=== PATIENT | male | born 1955 | race Caucasian/White ===

== ENCOUNTER 2019-07-14 10:15 | Emergency (ER) | payer BC, SELFPAY ==
[2019-07-14 10:23] VITALS: BP 135/88; PULSE 86; RESP 20; TEMP 37.3; O2SAT 98
--- NOTE | 2019-07-14 10:28 | ED.GENADULT ---
HPI - General Adult General Chief complaint: Upper Respiratory Infection Stated complaint: cough/fever Time Seen by Provider: 07/14/19 10:28 Source: patient Mode of arrival: ambulatory History of Present Illness HPI narrative: 63-year-old male patient presents the express care with complaints of cold symptoms that started 3 days ago. Patient states he has had body aches, fevers, just overall not feeling well. Patient states he had a little bit of stuffy nose and a slight cough. Patient states he has been taking aspirin for symptoms. Denies getting a flu shot this year. 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 Related Data Home Medications Medication Instructions Recorded Confirmed lisinopril 10 mg tablet 10 mg PO DAILY 07/06/19 07/14/19 aspirin [Adult Low Dose Aspirin] 81 mg PO DAILY 07/14/19 07/14/19 Allergies Allergy/AdvReac Type Severity Reaction Status Date / Time No Known Allergies Allergy Unknown Unverified 07/14/19 10:22 Review of Systems Review of Systems: Narrative: CONSTITUTIONAL: Positive fever, chills, body aches and sweats. EYES: Denies visual changes, redness, or discharge. ENT: Positive rhinorrhea, congestion, denies sore throat, or otalgia. CARDIOVASCULAR: Denies chest pain, palpitations, or edema. RESPIRATORY: Positive cough, denies dyspnea. GASTROINTESTINAL: Denies abdominal pain, nausea, vomiting, or diarrhea. GENITOURINARY: Denies dysuria or hematuria. SKIN: Denies rash or itching. MUSCULOSKELETAL: Denies back pain, joint pain, or myalgia. NEUROLOGIC: Denies headache, numbness, or weakness. PSYCHIATRIC: Denies anxiety or depression. [facility] Surgical History Surgical History (Updated 07/14/19 @ 10:29 by JOSE Rai) H/O inguinal hernia repair Family History Family History Mother Diabetes mellitus Family history of elevated blood lipids Family history of malignant neoplasm Sibling Family history of hypercholesterolemia Hypertension Father Hypertension Cerebrovascular accident Social History Social History Smoking status: Never smoker Alcohol intake: current Comments At the time of my signature I agree with nursing past medical history, surgical, social, and family history. There is no relevant family history pertinent to the presenting complaint. Exam Narrative: Exam Narrative: GENERAL: Well-appearing, well-nourished, and in no acute distress. HEAD: Normocephalic, atraumatic. No tenderness noted to frontal maxillary sinuses on palpation. EYES: PERRLA and EOMI. ENT: Nares with erythema and edema noted bilaterally, no rhinorrhea or epistaxis. Mucous membranes moist. Posterior pharynx with no erythema, tonsil enlargement, exudates or lesions present. Bilateral TMs are clear with no erythema or foreign bodies in the canal. NECK: Supple. No lymphadenopathy CHEST: Clear to auscultation. No respiratory distress. HEART: Regular rate and rhythm. No murmur heard. Normal peripheral pulses. ABDOMEN: Soft, nontender, nondistended, normal active bowel sounds. EXTREMITIES: Normal range of motion. No edema. SKIN: Warm, dry, no rash. NEURO: No focal deficits. Alert and oriented x3. Course Reevaluation(s) Reevaluation #1: Notify patient that his influenza test today was negative however given his symptoms and the sensitivity a test I am to go ahead and treat him as a flu today. Discussed with him that he still is outside of the window to receive antivirals I think he should continue taking his aspirin, Tylenol, ibuprofen to help with any aches pains and fevers. Discussed with him I will write him off for today and tomorrow since he is running a fever as long as he has been fever free for 24 hours he can go back to work next week. Discussed with patient he should get plenty of rest and increase his fluids and be sure to cover his cough. Patient verbalized understanding den
== END 2019-07-14 10:47 | disposition home or self-care (01) ==
PROVIDERS: Emergency Provider Nurse Practitioner Family
DX: J06.9 Acute upper respiratory infection, unspecified (principal); R50.9 Fever, unspecified; I10 Essential (primary) hypertension
CPT/HCPCS: 87804; 99212; G0463

== ENCOUNTER 2021-05-04 10:03 | Emergency (ER) | payer BC, SELFPAY ==
[2021-05-04 10:13] VITALS: BP 159/81; PULSE 69; RESP 16; TEMP 36.6; O2SAT 98
--- NOTE | 2021-05-04 10:51 | ED.URI ---
HPI - URI/Sore Throat General Chief Complaint: Upper Respiratory Infection Stated Complaint: sore throat Time Seen by Provider: 05/04/21 10:51 Source: patient Mode of arrival: ambulatory Limitations: no limitations History of Present Illness HPI Narrative: Wilbert Vann is a 65 yo male with a PMH of HTN, who presents with sore throat, started yesterday and states he feels like he has something stuck there. Has been taking [id number]-oke-[id number] pain medication drinking ice water. No fever no nausea vomiting diarrhea Related Data Home Medications Medication Instructions Recorded Confirmed aspirin [Adult Low Dose Aspirin] 81 mg PO DAILY 07/14/19 02/07/21 multivitamin,uz-[id number]-[id number] 1 tablet PO DAILY 02/03/20 02/07/21 Allergies Allergy/AdvReac Type Severity Reaction Status Date / Time No Known Allergies Allergy Unknown Verified 02/07/21 14:55 Review of Systems Review of Systems: CONSTITUTIONAL: Denies fever, chills, sweats. EYES: Denies visual changes, redness, discharge. ENT: Denies rhinorrhea, congestion, has sore throat, otalgia. Feels like something stuck in throat CARDIOVASCULAR: Denies chest pain, palpitations, edema. RESPIRATORY: Denies dyspnea, wheezing, cough GASTROINTESTINAL: Denies abdominal pain, nausea, vomiting, diarrhea. GENITOURINARY: Denies dysuria, hematuria, abnormal discharge SKIN: Denies rash or itching. NEUROLOGIC: Denies numbness, or focal weakness. PSYCHIATRIC: Denies anxiety or depression. [facility] Past Medical History Medical History Hepatitis C antibody test negative (07/28/17) Surgical History Surgical History H/O inguinal hernia repair S/P lumbar microdiscectomy (~2015) Family History Family History Mother Diabetes mellitus Family history of elevated blood lipids Family history of malignant neoplasm Sibling Family history of hypercholesterolemia Hypertension Father Hypertension Cerebrovascular accident Social History Social History Smoking end date: 11/29/84 Alcohol intake: current Comments At time of signature, I agree with nursing past medical, surgical, social and family history. There is no relevant family history pertinent to the presenting complaint. Exam Narrative: GENERAL: This is a well-nourished, well-developed patient, in mild distress. HEAD: normocephalic, atraumatic. EYES: . Sclera clear/white. Vision is grossly intact. EARS: E Hearing grossly intact. NOSE: External nose normal without nasal discharge, nares without redness, no rhinorrhea. THROAT: Mucous membranes moist, posterior pharynx erythema, has tonsils and sensation of something sticking when swallowing when patient points to area its the right upper third of esophagus NECK: Neck supple, non-tender CARDIOVASCULAR: Regular rate and rhythm without murmurs, gallops, or rubs. RESPIRATORY: Clear to auscultation. Breath sounds equal bilaterally. No wheezes, rales, or rhonchi. GASTROINTESTINAL: Abdomen soft, SKIN: warm, intact with no suspicious lesions or rash, good texture and turgor. NEURO: awake, alert, and oriented to person, place and time. There were no obvious focal neurologic abnormalities. Steady gait EXTREMITIES: Normal range of motion. BACK: Nontender without deformity Course Course Emergency Course: Patient comes with complaints of difficulty swallowing and feeling something sticking in his right tonsil Strep test is negative and on exam cannot visualize any lesion Start on amoxicillin and viscous lidocaine and refer to ENT Vital Signs Vital signs: Vital Signs Temperature 97.8 F 05/04/21 10:13 Pulse Rate 69 05/04/21 10:13 Respiratory Rate 16 05/04/21 10:13 Blood Pressure 159/81 H 05/04/21 10:13 Pulse Oximetry 98 05/04/21 10:13 Temperature
== END 2021-05-04 11:16 | disposition home or self-care (01) ==
PROVIDERS: Emergency Provider Nurse Practitioner; PCP Family Medicine
DX: R13.13 Dysphagia, pharyngeal phase (principal); I10 Essential (primary) hypertension
CPT/HCPCS: 87081; 87880; 99213; G0463

== ENCOUNTER → 2022-06-20 14:58 | Outpatient (CLI) | payer OTHER, SELFPAY ==
--- NOTE | ~2022-06-20 | XR_ITS ---
XR chest 2V DATE: 06/20/2022 15:07 INDICATION: Cough for one month TECHNIQUE: 2 views COMPARISON: None FINDINGS: There is bilateral hyperinflation. No pulmonary infiltrate or consolidation, pleural effusi on or pulmonary vascular congestion or pneumothorax is detected. Normal heart size. No hilar or mediastinal enlargement. Osteopenia. IMPRESSION: Bilateral hyperinflation. No active cardiopulmonary disease Reviewed, dictated and finalized at location B. [employer]
== END ==
PROVIDERS: PCP Family Medicine; Visit Provider Family Medicine
DX: R05.9 Cough, unspecified (principal); R91.8 Other nonspecific abnormal finding of lung field
CPT/HCPCS: 71046

== ENCOUNTER → 2022-09-22 12:12 | Outpatient (CLI) | payer OTHER, SELFPAY ==
--- NOTE | ~2022-09-22 | XR_ITS ---
EXAMINATION: XR lumbar spine min 4V DATE: 09/22/2022 12:28 INDICATION: Low back pain TECHNIQUE: Anteroposterior, lateral, and bilateral oblique views of the lumbar spine, and cone-down l ateral view of the lumbosacral junction were obtained. COMPARISON: MRI, 03/27/2016 FINDINGS: No fracture, dislocation, or subluxation. There is moderate loss of intervertebral disc spa ce height at L4-5 and mild loss of intervertebral disc space height at L5-S1. Small degenerative oste ophytes project from the anterior endplates of multiple vertebral bodies. There is mild to moderate f acet joint osteoarthritis. Changes of right inguinal hernia repair are noted. There is an indetermina te calcification of the right pelvis, possibly a bladder stone. IMPRESSION: 1. Moderate lumbar spondylosis without acute findings or significant interval change. 2. Indeterminate calcification of the right pelvis, possibly bladder stone. Reviewed, dictated and finalized at location B. IMPRESSION: 1. Moderate lumbar spondylosis without acute findings or significant interval c hange. 2. Indeterminate calcification of the right pelvis, possibly bladder stone.
== END ==
PROVIDERS: PCP Family Medicine; Visit Provider Family Medicine
DX: M54.9 Dorsalgia, unspecified (principal); M43.06 Spondylolysis, lumbar region
CPT/HCPCS: 72110

== ENCOUNTER → 2022-09-24 11:11 | Outpatient (CLI) | payer OTHER, SELFPAY ==
--- NOTE | ~2022-09-24 | MR_ITS ---
EXAMINATION: MR lumbar spine wo con DATE: 09/24/2022 12:05 INDICATION: Low back pain. TECHNIQUE: Magnetic resonance imaging (MRI) of the lumbar spine was performed without intravenous con trast. Sequences included sagittal T2-weighted FSE, sagittal T2-weighted FS FSE, sagittal T1-weighted FSE, and axial T2-weighted FSE. COMPARISON: Lumbar spine MRI 03/27/2016 FINDINGS: There is 10 degrees dextroscoliosis of lumbar spine. Vertebral body heights are normal. The re is mildly decreased disc height at L1-L2 and L2-L3, severely decreased disc height at L4-L5, and m ildly decreased disc height at L5-S1 with endplate remodeling. The distal spinal cord signal intensit y is normal. The conus medullaris is at T12-L1. The bladder is markedly distended. The following disc levels are specifically discussed: L1-L2: The disc is bulging and has an annular fissure. There is mild bilateral facet joint osteoarthr itis. There is mild bilateral neural foraminal stenosis. There is mild central canal stenosis. L2-L3: The disc is bulging. There is mild bilateral facet joint osteoarthritis. There is mild bilater al neural foraminal stenosis. There is mild central canal stenosis. There is severe stenosis of left lateral recess. L3-L4: The disc is bulging and has an annular fissure. There is moderate bilateral facet joint osteoa rthritis. There is moderate right and mild left neural foraminal stenosis. There is mild central daniel l stenosis. L4-L5: The disc is bulging and has an annular fissure. There is mild right and moderate left facet chapin int osteoarthritis. There is moderate bilateral neural foraminal stenosis. There is mild central daniel l stenosis. L5-S1: The disc is bulging with superimposed left subarticular zone extrusion with mass effect on lef t S1 nerve root in left lateral recess. There is severe right and moderate left facet joint osteoarth ritis. There is moderate bilateral neural foraminal stenosis. There is no central canal stenosis at t he midline. There is moderate stenosis of left lateral recess. IMPRESSION: 1. Severe lumbar spondylosis, worsened from 03/27/2016. 2. Lumbar dextroscoliosis. Reviewed, dictated and finalized at location A.
== END ==
PROVIDERS: PCP Family Medicine; Visit Provider Family Medicine
DX: M54.9 Dorsalgia, unspecified (principal); M47.816 Spondylosis without myelopathy or radiculopathy, lumbar region; M41.9 Scoliosis, unspecified
CPT/HCPCS: 72148

== ENCOUNTER 2022-09-27 11:01 | Emergency (ER) | payer OTHER, SELFPAY ==
--- NOTE | ~2022-09-27 | CT_ITS ---
EXAMINATION: CT abdomen pelvis wo con DATE: 09/27/2022 13:42 INDICATION: Hematuria TECHNIQUE: Computed tomography (CT) of the abdomen and pelvis was performed without intravenous contr ast. The dose-length product (DLP) was 423.61 mGy-cm. Automated exposure control and iterative recons truction technique were employed. COMPARISON: None FINDINGS: Minimal dependent atelectasis is present in the lung bases. The heart size is normal. The l iver, spleen, pancreas, gallbladder, and adrenal glands are normal. There is a 1.8 cm stone in the ur inary bladder. The bladder is decompressed by Alexander catheter. There is mild to moderate left hydroure teronephrosis and mild right hydronephrosis. No pathologically enlarged abdominal or pelvic lymph nod es are identified. No pathologically enlarged abdominal or pelvic lymph nodes are identified. No free intraperitoneal gas or evidence of bowel obstruction. The appendix is normal. There is a tiny umbili mukesh hernia containing fat. There is severe lumbar spondylosis IMPRESSION: 1. 1.8 cm stone in the urinary bladder with mild to moderate left hydronephrosis and mild right hydro nephrosis. Reviewed, dictated and finalized at location A. IMPRESSION: 1. 1.8 cm stone in the urinary bladder with mild to moderate left hydronephrosi s and mild right hydronephrosis.
[2022-09-27 11:04] VITALS: BP 180/114; PULSE 86; RESP 18; TEMP 36.4; O2SAT 94
[2022-09-27 11:45] LABS: Appearance Urine Cloudy (Clear); Bacteria Urine None Seen /hpf; Bilirubin Urine Negative (Negative); Blood Urine 3+ (Negative); Color Urine Dark Yellow (Yellow); Glucose Urine UA Negative (Negative); Ketones Urine 1+ mg/dL (Negative); Leukocyte Esterase Ur Trace LEU/UL (Negative); Nitrate Urine Negative (Negative); Non Pathogenic Casts 0-2; Protein Urine 2+ mg/dL (Negative); RBC Urine >100 /hpf (0-2); Specific Grav Ur 1.012 (1.001-1.035); Squamous Epithelial Cell Urine Occasional /hpf (Few); Urobilinogen Urine 0.2 mg/dL (<2.0); WBC Urine 0-5 /hpf; pH Urine 5.5 (5.0-9.0)
--- NOTE | 2022-09-27 11:45 | ED.GENADULT ---
HPI - General Adult General Chief complaint: Urogenital-Male Stated complaint: I can't pee Time Seen by Provider: 09/27/22 11:09 History of Present Illness HPI narrative: 66-year-old male presents emergency department for evaluation of increased urinary retention. Patient states that since this morning he has had increased difficulty urinating. Patient does have prior history of back surgery approximately 6 and half years ago. Patient reports over the last few weeks he was having increased left leg pain. Patient had follow-up with his chiropractor and was deferred to his primary care physician and his primary care physician ordered an outpatient MRI. Outpatient MRI showed that he did have degenerative changes but no neurologic issues were noted. Patient denies any prior issues with urinary retention. Patient currently denies any numbness weakness of his lower extremities. Patient denies any perineal numbness and denies any bowel incontinence. Patient states he has had some decreased caliber of his urinary stream and does have some increased hesitancy over the last few days. Related Data Home Medications Medication Instructions Recorded Confirmed aspirin 81 mg tablet,delayed 81 mg PO DAILY 07/14/19 09/22/22 release (Adult Low Dose Aspirin) multivitamin,[id number]-lyqs-[id number] 1 tablet PO DAILY 02/03/20 09/22/22 (Complete Multivitamin tablet) Allergies Allergy/AdvReac Type Severity Reaction Status Date / Time No Known Allergies Allergy Unknown Verified 09/27/22 11:35 Review of Systems Review of Systems: All systems reviewed & are unremarkable except as noted in HPI and below PMFSH Past Medical History Medical History Hepatitis C antibody test negative (07/28/17) Surgical History Surgical History H/O inguinal hernia repair S/P lumbar microdiscectomy (~2015) Family History Family History Mother Diabetes mellitus Family history of elevated blood lipids Family history of malignant neoplasm Sibling Family history of hypercholesterolemia Hypertension Father Hypertension Cerebrovascular accident Social History Social History Smoking status: Former smoker Smoking end date: 11/29/84 Alcohol intake: current Substance use: never Substance use type: does not use Lack of Transportation: No Lack of Food: Never True Current Housing: I Have Housing Concerned About Future Housing: No Difficulty Paying Gas/Electric Bills: No Difficulty Paying for Meds: No Currently Unemployed: No Education: High School Diploma/GED Difficulty w/ Childcare or Family Care: No Living arrangements: with family Additional living arrangements comments: Occupation/Education: occupation Gender identity (if verbalized by the patient): Male Sexual Orientation (if Verbalized by the Patient): Straight or Heterosexual Exam Narrative: APPEARANCE: Well appearing, no pain, no distress, well-nourished. HEAD: normocephalic, atraumatic. EYES: PERRLA/EOMI, conjunctivae clear. NOSE: Normal no drainage NECK: Supple. No adenopathy, no masses. RESPIRATORY: Airway patent, respirations nonlabored. Clear to auscultation bilaterally, no rales, rhonchi, wheezing. CARDIOVASCULAR: Regular rate and rhythm without murmurs rubs or gallops. ABDOMINAL: Soft, nontender, nondistended, normal bowel sounds MUSCULOSKELETAL: Moves all extremities. Strength/ROM intact, No edema, No calf tenderness. NEURO: Alert. Cranial nerves II through XII intact. Grossly intact. Normal strength reflexes and sensation in bilateral lower extremities SKIN: Warm, dry. Normal Color Course Course Emergency Course: 66-year-old male presented the ED for evaluation of urinary retention. Patient did have great
[2022-09-27 11:47] LABS: Add Urine Microscopic? YES
[2022-09-27 11:52] LABS: Basophils Percent Auto 0.4 % (0.2-1.2); Eosinophils Percent Auto 0.2 % (0-4.4); Hematocrit 43.5 % (42.0-52.0); Hemoglobin 15.4 g/dL (14.0-18.0); Immature Granulocyte Absolute 0.06 K/mm3 (0.00-0.031); Immature Granulocyte Percent A 0.5 % (0-0.5); Lymphocytes Absolute Auto 0.61 K/mm3 (0.9-3.2); Lymphocytes Percent Auto 5.4 % (18.3-44.2); Mean Corpuscular HGB Conc 35.4 g/dl (32-36); Mean Corpuscular Hemoglobin 31.1 pg (26-34); Mean Corpuscular Volume 87.9 fl (80-100); Monocytes Absolute Auto 0.7 K/mm3 (0.1-0.6); Monocytes Percent Auto 5.7 % (2.6-8.5); Neutrophils Absolute Auto 9.9 K/mm3 (1.3-6.7); Neutrophils Percent Auto 87.8 % (45.5-73.1); Platelet Count Result 223 k/mm3 (150-375); Red Blood Count 4.95 M/mm3 (4.6-6.20); Red Cell Distribution Width 11.8 % (11.5-14.5); White Blood Count 11.3 K/mm3 (4.5-10.0)
[2022-09-27 12:01] LABS: Alanine Aminotransferase 43 U/L (6-50); Albumin Level 4.8 g/dL (3.5-5.1); Alkaline Phosphatase 65 U/L (38-126); Anion Gap 10 mmol/L (8-16); Aspartate Amino Transferase 36 U/L (17-59); Bilirubin,Total 1.5 mg/dL (0.2-1.3); Blood Urea Nitrogen 17 mg/dL (9-20); Calcium 9.2 mg/dL (8.4-10.2); Carbon Dioxide 26 mmol/L (22-30); Chloride 96 mmol/L (98-107); Estimated CRCL calculation 72 ml/min; Estimated Glomerular Filt Rate > 60; Glucose 126 mg/dL (65-110); Potassium 4.7 mmol/L (3.4-5.0); Sodium 132 mmol/L (137-145)
[2022-09-27 12:31] VITALS: BP 132/82; PULSE 103; O2SAT 97
[2022-09-27] MEDS: TAMSULOSIN HCL 0.4 MG CAPSULE PO (14:54)
[2022-09-27 15:03] VITALS: BP 163/85; PULSE 100; RESP 18; O2SAT 99
--- NOTE | 2022-09-30 08:34 | PM.HPGS ---
History of Present Illness History of Present Illness Consent: Risks, benefits, and alternatives have been discussed and questions answered. Patient agrees to proceed with procedure. Chief complaint: I can't pee Narrative: Wilbert Vann is a 66 year old male, Until recently unknown to our practice, who presented to the ER over the weekend with increasing difficulty voiding and persistent low back pain. He has no known history of BPH or other urological issues. He does note, however, over the past several weeks a diminished stream. He denies a sense of incomplete emptying and has no history of known hematuria or urolithiasis. Imaging, however, demonstrated of bladder distension with a residual volume of approximately 1400 cc and a large bladder stone. After discussion of options he elected for placement of a catheter with outpatient plans for laser lithotripsy and extraction of a bladder stone. He was started on tamsulosin. He is aware the risk of this procedure including, but not limited to, persistent postoperative urinary retention requiring additional therapy, ongoing hematuria. Review of Systems Cardiovascular: Cardiovascular: Denies chest pain, Denies lightheadedness, Denies palpitations and Denies dyspnea Respiratory: Respiratory: Denies dyspnea Gastrointestinal: Gastrointestinal: Denies diarrhea, Denies nausea and Denies vomiting Genitourinary: Genitourinary: Denies hematuria and Denies dysuria Endocrine: Endocrine: Denies palpitations PMFSH Past Medical History Medical History (Updated 09/30/22 @ 08:36 by Kartik Kumar MD) Back Pain Chronic narcotic use Essential (primary) hypertension Hepatitis C antibody test negative (07/28/17) Prediabetes Pure hypercholesterolemia Surgical History Surgical History H/O inguinal hernia repair S/P lumbar microdiscectomy (~2015) Family History Family History Mother Diabetes mellitus Family history of elevated blood lipids Family history of malignant neoplasm Sibling Family history of hypercholesterolemia Hypertension Father Hypertension Cerebrovascular accident Social History Social History Smoking packs per day: 0.25 Smoking cigarettes per day: 5.0 Years smoked: 15 Smoking pack-years: 3.75 Smoking status: Former smoker Tobacco type: cigarettes Smoking end date: 11/29/84 Alcohol intake: current Drinks per week: 6 Substance use: never Substance use type: does not use Lack of Transportation: No Lack of Food: Never True Current Housing: I Have Housing Concerned About Future Housing: No Difficulty Paying Gas/Electric Bills: No Difficulty Paying for Meds: No Currently Unemployed: No Education: High School Diploma/GED Difficulty w/ Childcare or Family Care: No Living arrangements: with family Additional living arrangements comments: Occupation/Education: occupation Gender identity (if verbalized by the patient): Male Sexual Orientation (if Verbalized by the Patient): Straight or Heterosexual Spiritual care concerns: No Meds Home Medications and Allergies Home Medications Medication Instructions Recorded Confirmed Type aspirin 81 mg tablet,delayed 81 mg PO DAILY 07/14/19 09/29/22 History release (Adult Low Dose Aspirin) multivitamin,gu-[id number]-[id number] 1 tablet PO DAILY 02/03/20 09/29/22 History (Complete Multivitamin tablet) lisinopril 10 mg tablet 10 mg PO DAILY #90 tabs 02/13/22 09/29/22 Rx cyclobenzaprine 10 mg tablet 10 mg PO TID PRN muscle spasm #30 09/22/22 09/29/22 Rx tabs hydrocodone 7.5 mg-acetaminophen 1 tablet PO Q6H PRN pain #30 tabs 09/22/22 09/29/22 Rx 325 mg tablet tamsulosin 0.4 mg capsule (Flomax) 0.4 mg PO DAILY #20 caps 09/27/22 09/29/22 Rx Allergies Allergy/AdvReac Type Severit
--- NOTE | 2022-09-30 08:37 | WPDHPUPDATE1 ---
History and Physical Update Update Date/Time: 09/30/22 08:37 History and Physical has been reviewed, including an updated exam of the patient. There are NO changes in the patient's condition. Risks, benefits, and alternatives have been discussed and questions answered. Patient agrees to proceed with procedure.
== END 2022-09-27 15:05 | disposition home or self-care (01) ==
PROVIDERS: Emergency Provider Emergency Medicine; PCP Family Medicine
DX: N21.0 Calculus in bladder (principal); R33.9 Retention of urine, unspecified; Z79.82 Long term (current) use of aspirin; Z87.891 Personal history of nicotine dependence; N13.30 Unspecified hydronephrosis
CPT/HCPCS: 36415; 51702; 74176; 80053; 81001; 85025; 99284; A9270

== ENCOUNTER 2022-09-30 00:56 | Day surgery (SDC) | payer OTHER, SELFPAY ==
--- NOTE | 2022-09-29 11:19 | PC.NURSE ---
Report to the Outpatient Waiting Room, entrance under the green pavilion located off [facility], at time __1200 on date __09/30/22 . Planned Procedure Time: __1400 . Time changes happen often and if your time is changed the preop area will call you the afternoon before. - You and your visitor will be asked to self-screen and do not enter if you have any COVID symptoms. - A mask is optional within the hospital at this time. Patients may have clear liquids (water, carbonated beverages, clear teas, apple juice) until 3 hours prior to surgery with a maximum of 20 ounces. - No food from midnight until time of surgery - Infants may have breast milk until 4 hours before surgery, formula 6 hours prior to surgery. - Children will be allowed to drink immediately following surgery. If applicable, please bring a bottle or sippy cup to assist with drinking. Juice, water, soda, and popsicles are readily available. For infants on formula, please bring formula the day of surgery. Pacifiers are allowed. Take the following medications with a SIP of water the morning of surgery: __NONE DO NOT STOP ANY OF YOUR OTHER PRESCRIPTION MEDICATIONS PRIOR TO SURGERY ?EXCEPT THE FOLLOWING Medications to discontinue per physician ____ASPIRIN PER DR KIM Date to take last dose Please no make-up, nail croatian, hairspray, perfume, deodorant, or body powder the day of surgery. No jewelry (including any body piercings) or valuables the day of surgery, leave them at home. Please take a shower or bath the night before, or the morning of, surgery with an antibacterial soap. Wear comfortable, loose fitting clothing. Children are encouraged to wear pajamas. - Jewelry must be removed prior to entering the operating room. Rings and piercings that are not removed may be cut off. - The hospital will not accept responsibility for valuables. - Please leave all valuables, including medications, at home the day of surgery. If you are going home after surgery, a licensed driver's license examiner must drive you home. - NO public transportation without another adult if you receive anesthesia. - We recommend that an adult stay with you for 24 hours following discharge. - We also recommend that you do not drive, make important decision, drink alcoholic beverages, or take any drugs that were not prescribed by your health care provider for at least 24 hours after your discharge time. For Pediatric surgeries, we recommend two adults accompany the child home. Follow any additional instructions given to you from your surgeon. If you or anyone in your household have experienced Covid symptoms in the past week, please notify your surgeon or the nurse liaison at the phone number below for possible testing. Telephone instructions given to ___PATIENT and asked if any additional questions and then verbalized understanding. Patient advised to call surgeon office or pre surgery nurse liaison [phone] if any additional questions.
[2022-09-29 11:24] VITALS: BMI 23.6
--- NOTE | 2022-09-29 15:24 | WPDANESEPPF ---
Anes - Initial Pre Proc Eval Procedure: Operation Date: 09/30/22 14:00 Proposed Procedures p Cystoscopy, Bladder Stone Removal, Holmium Laser Lithotripsy - Kartik Kumar MD Date/Time: 09/29/22 15:24 Surgeon: Kartik Kumar MD Pre Op Diagnosis: bladder stone Patient Data Age: 66 Gender: M Height: 1.78 m Weight: 74.85 kg Allergies Allergy/AdvReac Type Severity Reaction Status Date / Time No Known Allergies Allergy Unknown Verified 09/29/22 11:09 Home Medications Medication Instructions Recorded Confirmed Type aspirin 81 mg tablet,delayed 81 mg PO DAILY 07/14/19 09/30/22 History release (Adult Low Dose Aspirin) multivitamin,me-umno-dssnqydx 1 tablet PO DAILY 02/03/20 09/30/22 History (Complete Multivitamin tablet) lisinopril 10 mg tablet 10 mg PO DAILY #90 tabs 02/13/22 09/30/22 Rx cyclobenzaprine 10 mg tablet 10 mg PO TID PRN muscle spasm #30 09/22/22 09/30/22 Rx tabs hydrocodone 7.5 mg-acetaminophen 1 tablet PO Q6H PRN pain #30 tabs 09/22/22 09/30/22 Rx 325 mg tablet tamsulosin 0.4 mg capsule (Flomax) 0.4 mg PO DAILY #20 caps 09/27/22 09/30/22 Rx Patient hx anesthesia problems: none Family hx anesthesia problems: none Results Review: All pre-operative results and documents have been reviewed as part of the pre-operative evaluation. [facility] Past Medical History Medical History (Updated 09/30/22 @ 08:36 by Kartik Kumar MD) Back Pain Chronic narcotic use Essential (primary) hypertension Hepatitis C antibody test negative (07/28/17) Prediabetes Pure hypercholesterolemia Surgical History Surgical History H/O inguinal hernia repair S/P lumbar microdiscectomy (~2015) Family History Family History Mother Diabetes mellitus Family history of elevated blood lipids Family history of malignant neoplasm Sibling Family history of hypercholesterolemia Hypertension Father Hypertension Cerebrovascular accident Social History Social History Smoking packs per day: 0.25 Smoking cigarettes per day: 5.0 Years smoked: 15 Smoking pack-years: 3.75 Smoking status: Former smoker Tobacco type: cigarettes Smoking end date: 11/29/84 Alcohol intake: current Drinks per week: 6 Substance use: never Substance use type: does not use Lack of Transportation: No Lack of Food: Never True Current Housing: I Have Housing Concerned About Future Housing: No Difficulty Paying Gas/Electric Bills: No Difficulty Paying for Meds: No Currently Unemployed: No Education: High School Diploma/GED Difficulty w/ Childcare or Family Care: No Living arrangements: with family Additional living arrangements comments: Occupation/Education: occupation Gender identity (if verbalized by the patient): Male Sexual Orientation (if Verbalized by the Patient): Straight or Heterosexual Spiritual care concerns: No Anes - Eval Final PreProcedure Day of Procedure 09/29/22 15:24 Patient weight: normal Heart: regular rate and rhythm Lungs: clear to auscultation and normal air movement Airway: Mallampati scale class II Neurological: alert and oriented Last oral intake: >/= 8 hours ASA classification: III Emergent: no Anesthetic plan: proceed Anesthesia type and monitoring: general LMA Results Review: All pre-operative results and documents have been reviewed as part of the pre-operative evaluation. Informed Consent: The patient's anesthetic plan and its attendant risks and benefits were discussed with the patient/family/POA. Questions were solicited and answers provided to the satisfaction of the patient/family/POA.
[2022-09-30] VITALS (9 sets, daily range): BP systolic 103–182; BP diastolic 80–107; PULSE 86–125; RESP 12–16; TEMP 36.2–36.3; O2SAT 96–100
--- NOTE | 2022-09-30 08:37 | HP_ITS ---
This report was moved to the correct visit on 10/01/2022. Original report was signed by Kartik Kumar MD on 09/30/22836. History and Physical Update Update Date/Time: 09/30/22 08:37 History and Physical has been reviewed, including an updated exam of the patient. There are NO changes in the patient's condition. Risks, benefits, and alternatives have been discussed and questions answered. Patient agrees to proceed with procedure. This report may have been done utilizing a voice recognition system. Attempts have been made to correct errors. However, there may be uncorrected grammatical, spelling, and recognition errors present. Report Initialized date/time: Kartik Kumar MD 09/30/22836 Electronically signed by: Kartik Kumar MD 09/30/22836 [facility]
--- NOTE | 2022-09-30 08:37 | HP_ITS ---
This report was moved to the correct visit on 10/01/2022. Original report was signed by Kartik Kumar MD on 09/30/22 0810. History of Present Illness History of Present Illness Consent: Risks, benefits, and alternatives have been discussed and questions answered. Patient agrees to proceed with procedure. Chief complaint: I can't pee Narrative: Wilbert Vann is a 66 year old male, Until recently unknown to our practice, who presented to the ER over the weekend with increasing difficulty voiding and persistent low back pain. He has no known history of BPH or other urological issues. He does note, however, over the past several weeks a diminished stream. He denies a sense of incomplete emptying and has no history of known hematuria or urolithiasis. Imaging, however, demonstrated of bladder distension with a residual volume of approximately 1400 cc and a large bladder stone. After discussion of options he elected for placement of a catheter with outpatient plans for laser lithotripsy and extraction of a bladder stone. He was started on tamsulosin. He is aware the risk of this procedure including, but not limited to, persistent postoperative urinary retention requiring additional therapy, ongoing hematuria. Review of Systems Cardiovascular: Cardiovascular: Denies chest pain, Denies lightheadedness, Denies palpitations and Denies dyspnea Respiratory: Respiratory: Denies dyspnea Gastrointestinal: Gastrointestinal: Denies diarrhea, Denies nausea and Denies vomiting Genitourinary: Genitourinary: Denies hematuria and Denies dysuria Endocrine: Endocrine: Denies palpitations [facility] Past Medical History Medical History (Updated 09/30/22 @ 08:36 by Kartik Kumar MD) Back Pain Chronic narcotic use Essential (primary) hypertension Hepatitis C antibody test negative (07/28/17) Prediabetes Pure hypercholesterolemia Surgical History Surgical History H/O inguinal hernia repair S/P lumbar microdiscectomy (~2016) Family History Family History Mother Diabetes mellitus Family history of elevated blood lipids Family history of malignant neoplasm Sibling Family history of hypercholesterolemia Hypertension Father Hypertension Cerebrovascular accident Social History Social History Smoking packs per day: 0.25 Smoking cigarettes per day: 5.0 Years smoked: 15 Smoking pack-years: 3.75 Smoking status: Former smoker Tobacco type: cigarettes Smoking end date: 11/29/84 Alcohol intake: current Drinks per week: 6 Substance use: never Substance use type: does not use Lack of Transportation: No Lack of Food: Never True Current Housing: I Have Housing Concerned About Future Housing: No Difficulty Paying Gas/Electric Bills: No Difficulty Paying for Meds: No Currently Unemployed: No Education: High School Diploma/GED Difficulty w/ Childcare or Family Care: No Living arrangements: with family Additional living arrangements comments: Occupation/Education: occupation Gender identity (if verbalized by the patient): Male Sexual Orientation (if Verbalized by the Patient): Straight or Heterosexual Spiritual care concerns: No Meds Home Medications and Allergies Home Medications Medication Instructions Recorded Confirmed Type aspirin 81 mg tablet,delayed 81 mg PO DAILY 07/14/19 09/29/22 History release (Adult Low Dose Aspirin) multivitamin,es-nuzo-evjlgdxy 1 tablet PO DAILY 02/03/20 09/29/22 Histor
--- NOTE | 2022-09-30 09:40 | ECG_ITS ---
Measurements Intervals [place] Rate: 101 P: 50 WI: 149 QRS: 8 QRSD: 90 T: 19 QT: 321 QTc: 417 Interpretive Statements SINUS TACHYCARDIA VENTRICULAR PREMATURE COMPLEX EARLY PRECORDIAL R/S TRANSITION BORDERLINE T WAVE ABNORMALITY- INFERIOR LEADS BORDERLINE ECG NO PREVIOUS ECG AVAILABLE FOR COMPARISON Electronically Signed On 09-30-2022 12:58:00 CDT by Hao Nazario D.O.
[2022-09-30] MEDS: LACTATED RINGERS 1,000 ML 30 ML IV CONT (12:35)
[2022-09-30] MEDS: fentaNYL CITRATE INJ (*CRX) 100 MCG/2 ML VIAL 50 MCG IV PUSH ×2 (12:36→13:30)
--- NOTE | 2022-09-30 12:56 | SUR.PREOP ---
PT HAS A VALIENTE CATHETER IN PLACE WITH A LEG BAG PRESENT.
--- NOTE | 2022-09-30 14:54 | SUR.PREOP ---
1230 PT AND MADE AWARE OF SURGERY TIME DELAY.
[2022-09-30] MEDS: ceFAZolin 2 GM/D5W 50 ML 2 GM/50 ML BAG IVPB (15:28)
--- NOTE | 2022-09-30 16:30 | W.PM.PROC2 ---
Procedure Note - Detailed Date of Procedure 09/30/22 Pre-op Diagnosis bladder stone Post-op Diagnosis Same Procedure Performed Cystoscopy, laser lithotripsy with extraction large bladder stone (3 cm) Surgeon Kartik Kumar MD Anesthesia General Description of Procedure patient is brought to the operative suite was prepped draped in routine sterile fashion while in dorsal lithotomy position after the uneventful induction of a general anesthetic. Cystoscopy is undertaken with a 21 F rigid cystoscope. He has lateral lobe hyperplasia without significant median lobe. The bladder shows trabeculation with cellule and early diverticular formation. There was a large, approximately 3 cm spiculated bladder stone in the dependent portion. Using a 550 micron JoinTV laser fiber we for dusted this stone dust and tiny particles, essentially all of which were removed with an [employer] evacuator. This is done with care to avoid injury to the bladder or ureteral orifices. Cystoscope was removed I did replace a 16 F coude catheter to drainage cleared efflux was clear at the termination. I plan to take the catheter out tomorrow. He tolerated the procedure well and was taken recovery room good condition. Drains Yes Packing No Pathology Yes Complications No immediate complications Condition Stable
== END 2022-09-30 17:50 | disposition home or self-care (01) ==
PROVIDERS: PCP Family Medicine; Visit Provider Urology
PROC: (CPT 52352; principal; 2022-09-30 14:00)
DX: N21.0 Calculus in bladder (principal); N40.1 Benign prostatic hyperplasia with lower urinary tract symptoms; R39.12 Poor urinary stream; G89.29 Other chronic pain; I10 Essential (primary) hypertension; E78.00 Pure hypercholesterolemia, unspecified; R73.03 Prediabetes; Z79.82 Long term (current) use of aspirin; Z79.891 Long term (current) use of opiate analgesic; Z87.891 Personal history of nicotine dependence
CPT/HCPCS: 52318; 82365; 88300; 93005; C1769; J0690; J1100; J2250; J2405; J2704; J3010; J7120

== ENCOUNTER 2022-10-02 04:19 | Emergency (ER) | payer OTHER, SELFPAY ==
[2022-10-02 04:21] VITALS: BP 184/113; PULSE 89; RESP 20; TEMP 35.8; O2SAT 97
[2022-10-02 04:37] VITALS: BP 162/114; PULSE 96; RESP 15; TEMP 36.6; O2SAT 98
--- NOTE | 2022-10-02 04:50 | ED.GENADULT ---
HPI - General Adult General Chief complaint: Urogenital-Male Stated complaint: can't pee Time Seen by Provider: 10/02/22 04:38 History of Present Illness HPI narrative: This is a 66-year-old male presenting ED with a chief complaint of urinary retention. Patient underwent a cystoscopy with laser removal of a bladder calculus by Dr. Kumar. Afterwards a 16 coude tip catheter was placed to help drain. It was then removed yesterday morning. Patient was able to urinate for several hours and then it slowed to a trickle. Then he was able to for some out while straining. At this point he can no longer force urine out. He does have some discomfort in the lower abdomen. The patient is on Flomax and keflex from the procedure. Related Data Home Medications Medication Instructions Recorded Confirmed aspirin 81 mg tablet,delayed 81 mg PO DAILY 07/14/19 09/30/22 release (Adult Low Dose Aspirin) multivitamin,ks-mnct-clcylwoo 1 tablet PO DAILY 02/03/20 09/30/22 (Complete Multivitamin tablet) Allergies Allergy/AdvReac Type Severity Reaction Status Date / Time No Known Allergies Allergy Unknown Verified 09/29/22 11:09 [facility] Past Medical History Medical History Back Pain Chronic narcotic use Essential (primary) hypertension Hepatitis C antibody test negative (07/28/17) Prediabetes Pure hypercholesterolemia Surgical History Surgical History H/O inguinal hernia repair S/P lumbar microdiscectomy (~2015) Family History Family History Mother Diabetes mellitus Family history of elevated blood lipids Family history of malignant neoplasm Sibling Family history of hypercholesterolemia Hypertension Father Hypertension Cerebrovascular accident Social History Social History Smoking packs per day: 0.25 Smoking cigarettes per day: 5.0 Years smoked: 15 Smoking pack-years: 3.75 Smoking status: Former smoker Tobacco type: cigarettes Smoking end date: 11/29/84 Alcohol intake: current Drinks per week: 6 Substance use: never Substance use type: does not use Lack of Transportation: No Lack of Food: Never True Current Housing: I Have Housing Concerned About Future Housing: No Difficulty Paying Gas/Electric Bills: No Difficulty Paying for Meds: No Currently Unemployed: No Education: High School Diploma/GED Difficulty w/ Childcare or Family Care: No Living arrangements: with family Additional living arrangements comments: Occupation/Education: occupation Gender identity (if verbalized by the patient): Male Sexual Orientation (if Verbalized by the Patient): Straight or Heterosexual Spiritual care concerns: No Exam Narrative: APPEARANCE: Patient appears uncomfortable Head: atraumatic. EYES: EOMI, NOSE: Atraumatic NECK: Trachea midline RESPIRATORY: No increased rate of breathing CARDIOVASCULAR: RRR, ABDOMINAL: fullness with moderate tenderness in the suprapubic area. The rest the abdomen is soft nontender no guarding rebound. Genital exam: Normal MUSCULOSKELETAl: No obvious deformities NEURO: Alert. Moving 4/4 extremities SKIN:: Warm, dry. Normal color PSYCHIATRIC: Normal affect Course Vital Signs Vital signs: Vital Signs Temperature 96.5 F L 10/02/22 04:21 Pulse Rate 89 10/02/22 04:21 Respiratory Rate 20 10/02/22 04:21 Blood Pressure 184/113 H 10/02/22 04:21 Pulse Oximetry 97 10/02/22 04:21 Oxygen Delivery Room Air 10/02/22 04:21 Temperature 98 F 10/02/22 04:37 Pulse Rate 96 10/02/22 04:37 Respiratory Rate 15 10/02/22 04:37 Blood Pressure 162/114 H 10/02/22 04:37 Pulse Oximetry 98 10/02/22 04:37 Oxygen Delivery Room Air 10/02/22 04:21 Medical Decision Making [facility] Narrative
[2022-10-02 04:53] VITALS: BP 158/97; PULSE 90; RESP 15; O2SAT 94
[2022-10-02 05:09] VITALS: BP 160/97; PULSE 81; RESP 15; O2SAT 100
[2022-10-02 05:23] LABS: Appearance Urine Clear (Clear); Bacteria Urine None Seen /hpf; Bilirubin Urine Negative (Negative); Blood Urine 2+ (Negative); Color Urine Yellow (Yellow); Glucose Urine UA Negative (Negative); Ketones Urine Negative (Negative); Leukocyte Esterase Ur 1+ LEU/UL (Negative); Nitrate Urine Negative (Negative); Non Pathogenic Casts 0-2; Protein Urine Trace mg/dL (Negative); Specific Grav Ur 1.012 (1.001-1.035); Squamous Epithelial Cell Urine None seen /hpf (Few)
[2022-10-02 05:26] LABS: Add Urine Microscopic? YES
[2022-10-02 05:27] VITALS: BP 139/90; PULSE 81; RESP 15; TEMP 36.6; O2SAT 94
--- NOTE | 2022-10-02 05:27 | PC.NURSE ---
Patient received leg bag and was connected to urinary catheter.
== END 2022-10-02 05:28 | disposition home or self-care (01) ==
PROVIDERS: Emergency Provider Emergency Medicine; PCP Family Medicine
DX: R33.9 Retention of urine, unspecified (principal); Z98.890 Other specified postprocedural states; I10 Essential (primary) hypertension; E78.00 Pure hypercholesterolemia, unspecified; R73.03 Prediabetes; Z87.891 Personal history of nicotine dependence
CPT/HCPCS: 51702; 81001; 87086; 99283

== ENCOUNTER 2022-10-10 17:55 | Emergency (ER) | payer OTHER, SELFPAY ==
[2022-10-10 17:56] VITALS: BP 175/111; PULSE 100; RESP 15; TEMP 36.8; O2SAT 99
--- NOTE | 2022-10-10 18:38 | ED.MALEGU ---
HPI - Male Genitourinary General Chief complaint: Urogenital-Male Stated complaint: urinary retention Time Seen by Provider: 10/10/22 18:03 History of Present Illness HPI Narrative: 66-year-old male presented to the emergency room with chief complaint of urinary retention. Patient underwent cystoscopy with laser removal of bladder calculus by Dr. Arevalo less than 2 weeks ago. Was seen in outpatient and had a Alexander catheter removed. Began experiencing urinary retention again, and had another Alexander catheter anchored. Patient states yesterday he had a Alexander removed, and states he has been having difficulty voiding or since. Patient is currently on Flomax. States the suprapubic tenderness is present when standing, but is not present when he is lying flat. Related Data Home Medications Medication Instructions Recorded Confirmed aspirin 81 mg tablet,delayed 81 mg PO DAILY 07/14/19 09/30/22 release (Adult Low Dose Aspirin) multivitamin,gn-vjwk-pjhflqne 1 tablet PO DAILY 02/03/20 09/30/22 (Complete Multivitamin tablet) Allergies Allergy/AdvReac Type Severity Reaction Status Date / Time No Known Allergies Allergy Unknown Verified 09/29/22 11:09 Review of Systems Review of Systems: CONSTITUTIONAL: Denies fever, chills, or sweats. EYES: Denies visual changes, redness, or discharge. ENT: Denies rhinorrhea, congestion, sore throat, or otalgia. CARDIOVASCULAR: Denies chest pain, palpitations, or edema. RESPIRATORY: Denies cough or dyspnea. GASTROINTESTINAL: Suprapubic tenderness, decreased urinary output GENITOURINARY: Denies dysuria or hematuria. SKIN: Denies rash or itching. MUSCULOSKELETAL: Denies back pain, joint pain, or myalgia. NEUROLOGIC: Denies headache, numbness, dizziness, or weakness. PSYCHIATRIC: Denies anxiety or depression. [facility] Past Medical History Medical History Back Pain Chronic narcotic use Essential (primary) hypertension Hepatitis C antibody test negative (07/28/17) Prediabetes Pure hypercholesterolemia Surgical History Surgical History H/O inguinal hernia repair S/P lumbar microdiscectomy (~2015) Family History Family History Mother Diabetes mellitus Family history of elevated blood lipids Family history of malignant neoplasm Sibling Family history of hypercholesterolemia Hypertension Father Hypertension Cerebrovascular accident Social History Social History Smoking packs per day: 0.25 Smoking cigarettes per day: 5.0 Years smoked: 15 Smoking pack-years: 3.75 Smoking status: Former smoker Tobacco type: cigarettes Smoking end date: 11/29/84 Alcohol intake: current Drinks per week: 6 Substance use: never Substance use type: does not use Lack of Transportation: No Lack of Food: Never True Current Housing: I Have Housing Concerned About Future Housing: No Difficulty Paying Gas/Electric Bills: No Difficulty Paying for Meds: No Currently Unemployed: No Education: High School Diploma/GED Difficulty w/ Childcare or Family Care: No Living arrangements: with family Additional living arrangements comments: Occupation/Education: occupation Gender identity (if verbalized by the patient): Male Sexual Orientation (if Verbalized by the Patient): Straight or Heterosexual Spiritual care concerns: No Exam Narrative: GENERAL: Well-appearing, well-nourished, no physical limitations, and in no acute distress. HEAD: Normocephalic, atraumatic. EYES: Conjunctivae normal, PERRLA and EOMI. CHEST: Clear to auscultation. No respiratory distress. No wheezes rales or rhonchi. HEART: Regular rate and rhythm. No murmur heard. Normal peripheral pulses. ABDOMEN: Soft, mild suprapubic tenderness, nondistended, normal a
[2022-10-10 18:59] LABS: Appearance Urine Clear (Clear); Bacteria Urine 1+ /hpf; Bilirubin Urine Negative (Negative); Blood Urine Trace (Negative); Color Urine Yellow (Yellow); Glucose Urine UA Negative (Negative); Ketones Urine Negative (Negative); Leukocyte Esterase Ur 3+ LEU/UL (Negative); Need Manual Microscopic Reviewed; Nitrate Urine Negative (Negative); Non Pathogenic Casts 0-2; Protein Urine Negative (Negative); RBC Urine 0-2 /hpf (0-2); Specific Grav Ur 1.005 (1.001-1.035); Squamous Epithelial Cell Urine None seen /hpf (Few); Urobilinogen Urine 0.2 mg/dL (<2.0); WBC Urine 21-50 /hpf; pH Urine 6.5 (5.0-9.0)
[2022-10-10 19:00] LABS: Add Urine Microscopic? YES
[2022-10-10] MEDS: PHENAZOPYRIDINE HCL 100 MG TABLET 200 MG PO (20:12)
[2022-10-10] MEDS: SULFAMETHOXAZOLE/TRIMETHOPRIM 800/160 MG DS TABLET 1 TAB PO (20:12)
[2022-10-10 20:14] VITALS: BP 174/97; PULSE 93; RESP 20; O2SAT 18
== END 2022-10-10 20:14 | disposition home or self-care (01) ==
PROVIDERS: Emergency Provider Nurse Practitioner Family; PCP Family Medicine
DX: R30.0 Dysuria (principal); I10 Essential (primary) hypertension; E78.00 Pure hypercholesterolemia, unspecified; R73.03 Prediabetes; Z87.891 Personal history of nicotine dependence
CPT/HCPCS: 81001; 87086; 87147; 87181; 87186; 99283; A9270

== ENCOUNTER 2022-10-11 16:34 | Emergency (ER) | payer OTHER, SELFPAY ==
[2022-10-11 17:03] VITALS: BP 202/122; PULSE 114; RESP 18; TEMP 36.6; O2SAT 95
--- NOTE | 2022-10-11 17:28 | ED.GENADULT ---
HPI - General Adult General Chief complaint: Urogenital-Male Stated complaint: urogenital Time Seen by Provider: 10/11/22 17:13 History of Present Illness HPI narrative: 66-year-old male presenting to the emergency department for evaluation of urinary retention. Patient states that he did have a recent lithotripsy and stent by urology. Patient did just have a Alexander catheter removed. Patient states since having Alexander catheter removed he has had decreased urinary output. Patient states he has had decreased urinary output since last night. Patient was unable to produce a significant mount of urine and bedside ultrasound showed a very distended bladder. Patient was seen in the emergency department last night was diagnosed with a urinary tract infection. Patient has been taking the antibiotic and Pyridium prescribed to him but states he has not had significant urinary output. Related Data Home Medications Medication Instructions Recorded Confirmed aspirin 81 mg tablet,delayed 81 mg PO DAILY 07/14/19 09/30/22 release (Adult Low Dose Aspirin) multivitamin,[id number]-[id number] 1 tablet PO DAILY 02/03/20 09/30/22 (Complete Multivitamin tablet) Allergies Allergy/AdvReac Type Severity Reaction Status Date / Time No Known Allergies Allergy Unknown Verified 10/11/22 17:20 Review of Systems Review of Systems: All systems reviewed & are unremarkable except as noted in HPI and below PMFSH Past Medical History Medical History Back Pain Chronic narcotic use Essential (primary) hypertension Hepatitis C antibody test negative (07/28/17) Prediabetes Pure hypercholesterolemia Surgical History Surgical History H/O inguinal hernia repair S/P lumbar microdiscectomy (~2015) Family History Family History Mother Diabetes mellitus Family history of elevated blood lipids Family history of malignant neoplasm Sibling Family history of hypercholesterolemia Hypertension Father Hypertension Cerebrovascular accident Social History Social History Smoking packs per day: 0.25 Smoking cigarettes per day: 5.0 Years smoked: 15 Smoking pack-years: 3.75 Smoking status: Former smoker Tobacco type: cigarettes Smoking end date: 07/01/85 Alcohol intake: current Drinks per week: 6 Substance use: never Substance use type: does not use Lack of Transportation: No Lack of Food: Never True Current Housing: I Have Housing Concerned About Future Housing: No Difficulty Paying Gas/Electric Bills: No Difficulty Paying for Meds: No Currently Unemployed: No Education: High School Diploma/GED Difficulty w/ Childcare or Family Care: No Living arrangements: with family Additional living arrangements comments: Occupation/Education: occupation Gender identity (if verbalized by the patient): Male Sexual Orientation (if Verbalized by the Patient): Straight or Heterosexual Spiritual care concerns: No Exam Narrative: APPEARANCE: Well appearing, no pain, no distress, well-nourished. HEAD: normocephalic, atraumatic. EYES: PERRLA/EOMI, conjunctivae clear. NOSE: Normal no drainage NECK: Supple. No adenopathy, no masses. RESPIRATORY: Airway patent, respirations nonlabored. Clear to auscultation bilaterally, no rales, rhonchi, wheezing. CARDIOVASCULAR: Regular rate and rhythm without murmurs rubs or gallops. ABDOMINAL: Soft, suprapubic tenderness to palpation : Bedside ultrasound showed distended urinary bladder. MUSCULOSKELETAL: Moves all extremities. Strength/ROM intact, No edema, No calf tenderness. NEURO: Alert. Cranial nerves II through XII intact. Grossly intact SKIN: Warm, dry. Normal Color Course Course Emergency Course: 66-year-old male with current urinary re
[2022-10-11 18:45] VITALS: BP 125/84; PULSE 95; RESP 18; O2SAT 96
== END 2022-10-11 18:46 | disposition home or self-care (01) ==
PROVIDERS: Emergency Provider Emergency Medicine; PCP Family Medicine
DX: R33.9 Retention of urine, unspecified (principal); I10 Essential (primary) hypertension; Z87.891 Personal history of nicotine dependence
CPT/HCPCS: 51702; 99283

== ENCOUNTER → 2022-10-28 11:37 | Outpatient (CLI) | payer OTHER, SELFPAY ==
--- NOTE | ~2022-10-28 | XR_ITS ---
Lumbosacral Spine: AP and lateral views, with neutral, flexion, and extension positioning Clinical History: Pain COMPARISON: 09/22/2022 Findings: Stable dextroscoliosis of the lumbar spine. No instability evident on flexion or extension. No fracture or sublocation. There is severe degenerative disc narrowing at L4-L5 and L5-S1. Remainin g disc spaces are relatively well-preserved. There is advanced facet arthropathy at L4-L5 and L5-S1. The sacroiliac joints are normally outlined. Impression: Advanced degenerative change at L4-L5 and L5-S1, as detailed above. Reviewed, dictated and finalized at location . Impression: Advanced degenerative change at L4-L5 and L5-S1, as detailed above.
--- NOTE | ~2022-10-28 | CT_ITS ---
EXAMINATION: CT lumbar spine wo con DATE: 10/28/2022 12:04 INDICATION: Lumbar spondylosis without myelopathy or radiculopathy. Low back pain. TECHNIQUE: Computed tomography (CT) of the lumbar spine was performed without intravenous contrast. A utomated exposure control and iterative reconstruction technique were employed. The dose-length produ ct was 417.00 mGy-cm. COMPARISON: Lumbar spine MRI 09/24/2022, CT abdomen and pelvis 09/27/2022 FINDINGS: There is chronic diffuse bladder wall thickening, which may be secondary to chronic outlet obstruction or cystitis. Partially visualized are bladder stones. There is 15 degrees dextroscoliosis of lumbar spine. Vertebral body heights are normal. There is mildly decreased disc height at L1-L2, L2-L3, and L3-L4 and severely decreased disc height at L4-L5. The following disc levels are specifica lly discussed: L1-L2: The disc is bulging. There is mild bilateral facet joint osteoarthritis. There is mild right a nd moderate left neural foraminal stenosis. There is mild central canal stenosis. L2-L3: The disc is bulging. There is mild bilateral facet joint osteoarthritis. There is moderate prem ateral neural foraminal stenosis. There is mild central canal stenosis. L3-L4: The disc is bulging. There is severe bilateral facet joint osteoarthritis. There is moderate b ilateral neural foraminal stenosis. There is mild central canal stenosis. L4-L5: The disc is bulging. There is severe bilateral facet joint osteoarthritis. There is moderate b ilateral neural foraminal stenosis. There is mild central canal stenosis. L5-S1: The disc is bulging. There is severe bilateral facet joint osteoarthritis. There is mild bilat eral neural foraminal stenosis. There is mild central canal stenosis. IMPRESSION: 1. Severe lumbar spondylosis. 2. Lumbar dextroscoliosis. Reviewed, dictated and finalized at location L.
== END ==
PROVIDERS: PCP Neurological Surgery; Visit Provider Neurological Surgery
DX: M47.816 Spondylosis without myelopathy or radiculopathy, lumbar region (principal); M41.86 Other forms of scoliosis, lumbar region
CPT/HCPCS: 72110; 72131

== ENCOUNTER → 2023-02-18 10:58 | Outpatient (CLI) | payer OTHER, SELFPAY ==
--- NOTE | ~2023-02-18 | XR_ITS ---
EXAMINATION: XR lumbar spine min 4V DATE: 02/18/2023 11:12 INDICATION: Status post lumbar fusion TECHNIQUE: AP and lateral in neutral, flexion, extension views of the lumbar spine were obtained. COMPARISON: 10/28/2022 FINDINGS: There are changes of interval anterior and posterior fusion at L5-S1. There is unchanged se jammie loss of intervertebral disc space height at L4-5. The vertebral body heights are maintained. No hypermobility is present with flexion or extension. There are probable changes of right inguinal obdulio ia repair. IMPRESSION: 1. Changes of interval anterior and posterior fusion at L5-S1 and severe lumbar spondylosis at L4-5 w ithout acute findings. Reviewed, dictated and finalized at location B. IMPRESSION: 1. Changes of interval anterior and posterior fusion at L5-S1 and severe lumbar spondylosis at L4-5 without acute findings.
== END ==
PROVIDERS: PCP Neurological Surgery; Visit Provider Neurological Surgery
DX: M43.26 Fusion of spine, lumbar region (principal); M43.06 Spondylolysis, lumbar region; Z98.1 Arthrodesis status
CPT/HCPCS: 72110

== ENCOUNTER → 2023-06-19 12:15 | Outpatient (CLI) | payer OTHER, SELFPAY ==
--- NOTE | ~2023-06-19 | XR_ITS ---
XR lumbar spine 2-3V DATE: 06/19/2023 12:40 INDICATION: Status post lumbar fusion TECHNIQUE: AP, lateral, coned lateral lumbosacral views COMPARISON: February 18, 2023 lumbar spine FINDINGS: Again noted is interbody and posterior surgical fusion at L5-S1. No displacement or fractur e of the hardware is noted. There is diffuse osteopenia. There is mild dextroscoliosis of the lumbar spine. There is severe degenerative disc disease at L4-5 and mild degenerative disc disease at the remaining lumbar interspaces. No fracture or bone destruction is evident. The lumbar pedicles appear intact. There is degenerative change but no erosive change or ankylosis at the sacroiliac joints. Probable right inguinal herniorrhaphy. IMPRESSION: Status post posterior and interbody spinal fusion at L5-S1 Severe degenerative disc disease at L4-5, mild degenerative disease of the remainder of the lumbar sp ine Osteopenia Mild dextroscoliosis Reviewed, dictated and finalized at location B. MIXER IMPRESSION: Status post posterior and interbody spinal fusion at L5-S1 Severe degenerative disc disease at L4-5, mild degenerative disease of the [place] of the lumbar spine Osteopenia Mild dextroscoliosis
== END ==
PROVIDERS: PCP Family Medicine; Visit Provider Neurological Surgery
DX: M51.36 Other intervertebral disc degeneration, lumbar region (principal); M85.88 Other specified disorders of bone density and structure, other site; M41.86 Other forms of scoliosis, lumbar region; Z98.1 Arthrodesis status
CPT/HCPCS: 72100

== ENCOUNTER 2023-12-30 11:01 | Outpatient (CLI) | payer OTHER, SELFPAY ==
--- NOTE | ~2023-12-30 | XR_ITS ---
3 VIEWS LUMBAR SPINE Ordering provider: Jocelyn Noonan MD History: . 1 YEAR S/P lumbar fusion . Comparison: None. FINDINGS: VERTEBRAL BODIES:Postoperative changes at the level of L5-S1. Mild dextroscoliosis.No visible fractur e or subluxation. DISK SPACES: Narrowing of the disc spaces L3-4, L4-L5 with a disc spacer at the level of L5-S1. SOFT TISSUES: Normal. IMPRESSION: No acute osseous abnormality lumbar spine. Reviewed, dictated and finalized at location A.
== END 2023-12-30 11:02 ==
LOC: GOSHIMG 11:02
PROVIDERS: PCP Family Medicine; Visit Provider Neurological Surgery
DX: Z98.1 Arthrodesis status (principal)
CPT/HCPCS: 72100